=== PATIENT | female | born 1965 | race Two or more races ===

== ENCOUNTER 2017-12-10 16:16 | Inpatient (IN) | payer OTHER ==
[~2017-12-10] VITALS: Ht 166.4 cm; Wt 83.5 kg
[2017-12-10 18:46] VITALS: BP 132/45
--- NOTE | 2017-12-10 19:05 | NUR ---
RN NOTE RECEIVED PT ON FROM [facility], AT 1830, AOX4, R ARM AND LEG WEAKNESS, VS STABLE, ON TELEMONITOR SR 67, IV IN LEFT HAND, CALL LIGHT WITHIN REACH, BED IN LOW AND LOCKED POSITION, AWAITING FOR MD FOR ADMITTING ORDERS AND WILL ENDORSE TO REGIONAL RETAIL SALES MANAGER NURSE.
--- NOTE | 2017-12-10 19:30 | NUR ---
TELE 1 RN NOTE ADMITTED PT WHO EARLIER CAME FROM [facility] DIRECT ADMIT. DX WITH TIA BY DR CASAS. PT IN BED A/A/O X 4, NO SOB NOTED. NO DISTRESS OR DISCOMFORT NOTED. DENIES PAIN. STATES "MY RT ARM AND RT LEG IS VERY WEAK". NEURO ASSESSMENT DONE. S/L IN LT HAND # 20 G INTACT AND PATENT. SIDE RAILS UP X 2 AND CALL LIGHT WITHIN REACH. CONTINUE TO MONITOR HER.
[2017-12-10 20:00] VITALS: BP 179/79
[2017-12-10] MEDS ORDERED: ACETAMINOPHEN 325 MG TABLET PO PRN (20:00)
[2017-12-10] MEDS ORDERED: MAGNESIUM HYDROXIDE 30 ML UDC PO PRN (20:00)
[2017-12-10] MEDS ORDERED: MAG HYDROX/AL HYDROX/SIMETH 30 ML UDC PO PRN (20:00)
[2017-12-10] MEDS ORDERED: ONDANSETRON HCL/PF 4 MG/2 ML VIAL IVP PRN (20:00)
[2017-12-10] MEDS ORDERED: Z GUARD REMEDY 2 OZ OINT TP PRN (20:00)
[2017-12-10] MEDS ORDERED: HYDROCODONE/APAP 5/325MG 1 EACH TABLET PO PRN (20:00)
--- NOTE | 2017-12-10 20:00 | NUR ---
TELE 1 RN NOTE TOOK PT DOWN TO RADIOLOGY FOR CT HEAD WITH CONTRAST WITH RADIOLOGY DEPT. ALSO THEY TOOK CXR. WILL WAIT FOR RESULT. PT IN NO DISTRESS OR DISCOMFORT.
--- NOTE | 2017-12-10 20:15 | NUR ---
TELE 1 RN NOTE US BILATERAL CAROTID IN PROGRESS. AFTERWARDS EKG PENDING.
[2017-12-10 21:11] LABS: BASOPHILS # (AUTO) 0.1 /CMM (0.0-0.2); BASOPHILS % (AUTO) 0.9 % (0.0-2.0); EOSINOPHILS % (AUTO) 1.3 % (0.0-6.0); HEMATOCRIT 41 % (33-45); HEMOGLOBIN 14.3 g/dL (11.5-14.8); LYMPHOCYTES # (AUTO) 3.1 /CMM (0.8-4.8); LYMPHOCYTES % (AUTO) 43.3 % (20.0-44.0); MEAN CORPUSCULAR HGB CONC 35 g/dl (31.0-36.0); MEAN CORPUSCULAR VOLUME 99 fL (82-100); MONOCYTES # (AUTO) 0.6 /CMM (0.1-1.30); MONOCYTES % (AUTO) 8.7 % (2.0-12.0); NEUTROPHILS # (AUTO) 3.3 /CMM (1.8-8.9); NEUTROPHILS % (AUTO) 45.8 % (43.0-81.0); PLATELET COUNT (AUTO) 206 /CMM (150-450); RDW COEFFICIENT OF VARIATION 12.4 (11.5-15.0); RED BLOOD CELL COUNT(AUTO) 4.17 MIL/uL (4.0-5.2); WHITE BLOOD COUNT (AUTO) 7.2 K/uL (4.3-11.0)
[2017-12-10 21:31] LABS: INR 1.04 (0.87-1.13)
[2017-12-10] MEDS: IV NS 0.9% 1,000 ML IV PRN (21:46)
[2017-12-10] MEDS: ATORVASTATIN 40 MG TABLET PO SCH (21:46)
[2017-12-10] MEDS: MORPHINE SULFATE INJ 2 MG/ML DISP.SYRIN IV PRN (21:47)
--- NOTE | 2017-12-10 21:47 | NUR ---
TELE 1 RN NOTE PT C/O PAIN IN RT HIP AND RT SHOULDER 8/10 MORPHINE 2MG IVP GIVEN. CONTINUE TO MONITOR HER.
[2017-12-10 21:53] LABS: CALCIUM, SERUM 9.3 mg/dL (8.5-10.1); CREATININE 0.7 mg/dL (0.6-1.3); POTASSIUM 3.9 mmol/L (3.5-5.1)
[2017-12-10] MEDS: BLOOD SUGAR DIAGNOSTIC 1 EACH STRIP IN SCH (21:59)
[2017-12-10 22:07] LABS: ALBUMIN 3.6 g/dL (3.4-5.0); BILIRUBIN,TOTAL 0.8 mg/dL (0.2-1.0); TOTAL PROTEIN, SERUM 8.4 g/dL (6.4-8.2)
--- NOTE | 2017-12-10 22:15 | NUR ---
TELE [address] AYALA INFORMED REGARDING CT WITHOUT CONTRAST RESULT, NO NEW ORDER GIVEN.
--- NOTE | 2017-12-10 22:17 | NUR ---
TELE 1 RN OTE PAIN SUBSIDED 08/11 . PT IN NO DISTRESS OR DISCOMFORT NOTED.
[2017-12-10 22:31] LABS: THYROID STIMULATING HORMONE 5.564 uIU/mL (0.358-3.74)
[2017-12-10 23:00] VITALS: BP 161/70
[2017-12-10] MEDS ORDERED: hydrALAZINE HCL 25 MG TABLET PO PRN (23:00)
[2017-12-10] MEDS: ZOLPIDEM TARTRATE 5 MG TABLET PO PRN (23:06)
--- NOTE | 2017-12-10 23:07 | NUR ---
TELE 1 RN NOTE PT IN BED AWAKE C/O INSOMNIA. AMBIEN 5 MG PO GIVEN FOR SLEEP. ALSO HYDRALAZINE 25 GIVEN FOR HIGH BP. CONTINUE TO MONITOR HER.
[2017-12-11] VITALS (7 sets, daily range): BP systolic 78–169; BP diastolic 67–82
[2017-12-11] MEDS ORDERED: BLOOD SUGAR DIAGNOSTIC 1 EACH STRIP IN SCH
[2017-12-11] MEDS: MORPHINE SULFATE INJ 2 MG/ML DISP.SYRIN IV PRN ×2 (06:01→19:59)
--- NOTE | 2017-12-11 06:01 | NUR ---
TELE 1 RN NOTE PT C/O PAIN IN RT CALF 02/08. MORPHINE SULFATE 2 MG IVP GIVEN. CONTINUE TO MONITOR HER.
--- NOTE | 2017-12-11 06:27 | NUR ---
TELE 1 RN NOTE PT IN BED AWAKE. NO DISTRESS OR DISCOMFORT NOTED. DENIES PAIN. PT ABLE TO AMBULATE WITH ASSISTANCE TO BATHROOM. RT SIDE REMAIN WEEK. ON TELE SR 62. IVF INFUSING WELL, NO S/S OF INFILTRATION NOTED. SIDE RAILS UP X 2 AND CALL LIGHT WITHIN REACH. WILL ENDORSE TO DAY SHIFT NURSE FOR CONTINUE TO CARE. .
--- NOTE | 2017-12-11 06:31 | NUR ---
TELE 1 RN NOTE PAIN SUBSIDED 08/11. PT AWAKE. NO DISTRESS NOTED.
[2017-12-11] MEDS: BLOOD SUGAR DIAGNOSTIC 1 EACH STRIP IN SCH ×4 (07:30→21:02)
[2017-12-11 07:44] LABS: BASOPHILS % (AUTO) 0.7 % (0.0-2.0); EOSINOPHILS % (AUTO) 1.5 % (0.0-6.0); HEMATOCRIT 41 % (33-45); HEMOGLOBIN 13.9 g/dL (11.5-14.8); LYMPHOCYTES # (AUTO) 1.9 /CMM (0.8-4.8); LYMPHOCYTES % (AUTO) 35.5 % (20.0-44.0); MEAN CORPUSCULAR HGB CONC 34 g/dl (31.0-36.0); MEAN CORPUSCULAR VOLUME 100 fL (82-100); MONOCYTES # (AUTO) 0.5 /CMM (0.1-1.30); MONOCYTES % (AUTO) 9.7 % (2.0-12.0); NEUTROPHILS # (AUTO) 2.9 /CMM (1.8-8.9); NEUTROPHILS % (AUTO) 52.6 % (43.0-81.0); PLATELET COUNT (AUTO) 187 /CMM (150-450); RDW COEFFICIENT OF VARIATION 12.4 (11.5-15.0); RED BLOOD CELL COUNT(AUTO) 4.07 MIL/uL (4.0-5.2); WHITE BLOOD COUNT (AUTO) 5.5 K/uL (4.3-11.0)
[2017-12-11 07:58] LABS: CALCIUM, SERUM 8.8 mg/dL (8.5-10.1); CREATININE 0.8 mg/dL (0.6-1.3); PHOSPHORUS 4.8 mg/dL (2.5-4.9); POTASSIUM 4.9 mmol/L (3.5-5.1)
--- NOTE | 2017-12-11 08:00 | NUR ---
PROGRAM PROPOSALS COORDINATOR NOTE PATINT IN BED , ALL NEEDS ATTENDED, BED IN LOWEST AND LOCKED POSITION , ON TELE MONITOR SR , LT HAND IV HL INTACT ,ON IVF ORDERED, NISS SCALE DONE ORDERED, NO DEFICIT NOTED , WILL CONT TO MONITOR CLOSELY
[2017-12-11] MEDS: ENOXAPARIN SODIUM 40 MG/0.4 ML DISP.SYRIN SQ SCH (08:49)
[2017-12-11] MEDS: ASPIRIN 81 MG TAB.CHEW PO SCH (08:52)
[2017-12-11] MEDS: IV NS 0.9% 1,000 ML IV PRN (10:34)
--- NOTE | 2017-12-11 11:18 | NUR ---
SOLE ROUNDER NOTE PATIENT HAS PT EVAL, ABLE AMBULATE WELL , ALSO 2D ECHO DONE ORDERED, HL ON RT AC RUBEN 22 INSERTED WITH GOOD BLOOD RETURN ,WILL CONT TO MONITOR CLOSELY
--- NOTE | 2017-12-11 11:53 | NUR ---
[facility] NOTE CONSENT FORM BRAIN SIGNED BY PATIENT, KARY Barone\U Addendum: 12/11/17 at 1317 by KURT HANSEN RN MRI BRAIN CONSENT SIGNED BY PATIENT
--- NOTE | 2017-12-11 12:53 | NUR ---
TEXTED DR. BAUER FOR MRI APPROVAL.
--- NOTE | 2017-12-11 13:16 | NUR ---
DR. BAUER TEXTED BACK, ON HOLD FOR NOW HE WILL LET US KNOW.
--- NOTE | 2017-12-11 15:14 | NUR ---
OFFICE ADMIN NOTE SEEN BY DR KRISTOPHER COHEN TO DO MRI
--- NOTE | 2017-12-11 15:38 | NUR ---
TRAUMA DOCTOR NOTE DR SUMMERS AT BEDSIDE ,NEUROLOGIC EVAL DONE AT BEDSIDE
--- NOTE | 2017-12-11 16:54 | NUR ---
GEAR GENERATOR SET UP OPERATOR NOTE GET REPORT FROM RADIOLOGIST. CALLED TO,[facility] LEAVE SPECIALIST NOTIFIED THAT MRI RESULT NO NEW ORDER GIVEN AT THI TIME
--- NOTE | 2017-12-11 16:56 | NUR ---
RELEASE MANAGER NOTE CALLED TO DR SUMMERS NEUROLOGIST LEFT A MASSAGE ABOUT MRI RESULT ,WILL F\U AWAITING FOR RETURN CALL Addendum: 12/11/17 at 1757 by KURT HANSEN RN PER DR SUMMERS NOTES SHE AWARE OF MRI BRAIN RESULT , WILL CONT TO MONITOR CLOSELY
--- NOTE | 2017-12-11 17:49 | NUR ---
TEL;E RN NOTE SMOKING CESSATION GIVEN TO PATIENT ,UNDERSTOOD
--- NOTE | 2017-12-11 19:02 | NUR ---
SOCIAL SERVICE ASSISTANT NOTE ALL NEEDS ATTENDED ,CONT ON IVF ORDERED CALL LIGHT WITHIN REACH , WILL CONT TO MONITOR CLOSELY
[2017-12-11] MEDS: ZOLPIDEM TARTRATE 5 MG TABLET PO PRN (19:59)
[2017-12-11] MEDS: ATORVASTATIN 40 MG TABLET PO SCH (21:02)
[2017-12-12] VITALS: BP 152/101
[2017-12-12] MEDS: IV NS 0.9% 1,000 ML IV PRN ×2 (03:53→04:01)
[2017-12-12] MEDS: MORPHINE SULFATE INJ 2 MG/ML DISP.SYRIN IV PRN (03:54)
[2017-12-12 04:00] VITALS: BP 175/89
[2017-12-12 04:34] VITALS: BP 175/89
--- NOTE | 2017-12-12 07:10 | NUR ---
TELE/RN NOTES RECEIVED PT IN BED IN SEMI THORNTON POSITION, ALERT AND VERBALLY RESPONSIVE, NO SOB, NO C/O PAIN, WITH ONGOING IVF NS @ 75ML/HR ON RAC, INTACT AND PATENT, CALL LIGHT WITHIN REACH, SAFETY MEASURES OBSERVED, WILL CONTINUE TO MONITOR,
[2017-12-12 08:00] VITALS: BP 145/79
[2017-12-12] MEDS: BLOOD SUGAR DIAGNOSTIC 1 EACH STRIP IN SCH ×2 (08:08→12:18)
[2017-12-12] MEDS: ASPIRIN 81 MG TAB.CHEW PO SCH (09:07)
[2017-12-12] MEDS: ENOXAPARIN SODIUM 40 MG/0.4 ML DISP.SYRIN SQ SCH (09:08)
[2017-12-12 12:00] VITALS: BP 162/92
[2017-12-12] MEDS ORDERED: ASPI-1169 PO (14:55)
[2017-12-12] MEDS ORDERED: ATOR40TA PO (14:55)
[2017-12-12] MEDS ORDERED: LISI-607 PO (14:55)
[2017-12-12 16:00] VITALS: BP 166/83
--- NOTE | 2017-12-12 17:00 | NUR ---
TELE DISCHARGE NOTES D/C PT TO HOME WITH HH TO FOLLOW FOR PT/OT. IN STABLE CONDITION, NO ACUTE DISTRESS NOTED, NO C/O PAIN, REMOVED IV, IV CATH INTACT, PRESSURE DRESSING APPLIED, NO SIGNS OF INFECTION/BLEEDING, D/C INSTRUCTIONS DISCUSSED AND PT VERBALIZED UNDERSTANDING. SAFETY MEASURES OBSERVED AT ALL TIMES. D/C ACCOMPANIED BY BROTHER JUAN
== END 2017-12-12 17:06 | disposition home or self-care (01) | DRG 45 ==
LOC: TELE1 18:12
PROVIDERS: ADMIT Internal Medicine; ATTEND Internal Medicine
DX: I63.9 Cerebral infarction, unspecified (principal); I10 Essential (primary) hypertension; B19.20 Unspecified viral hepatitis C without hepatic coma; E78.5 Hyperlipidemia, unspecified; Z72.0 Tobacco use; B18.2 Chronic viral hepatitis C; I25.10 Atherosclerotic heart disease of native coronary artery without angina pectoris
CPT/HCPCS: 36415; 70450-TC; 70551-TC; 71046; 80048-TC; 80053-TC; 80061-TC; 82962-TC; 83735-TC; 83880; 84100-TC; 84443-TC; 84484-TC; 85025-TC; 85652-TC; 85730-TC; 87081-TC; 92611-TC; 93307-TC; 93880-TC; 97530-TC; J1650; J2270; J7030; Z7610